=== PATIENT | female | born 1995 | race African-American/Black ===

== ENCOUNTER 2021-12-16 20:02 | Emergency (ER) | payer MEDICAID ==
[~2021-12-16] VITALS: Ht 157.5 cm; Wt 89.0 kg
[2021-12-17 01:46] LABS: CHLORIDE 105 mEq/L (98-107)
[2021-12-17 03:39] VITALS: BP 114/78
== END 2021-12-17 03:41 | disposition home or self-care (01) ==
LOC: ER 20:02
DX: M54.2 Cervicalgia (principal); R20.0 Anesthesia of skin
CPT/HCPCS: 36415; 70498; 80048; 81025; 99285; Z7610